=== PATIENT | female | born 1935 | race Caucasian/White ===

== ENCOUNTER 2018-01-07 12:35 | Inpatient (IN) | payer OTHER ==
[~2018-01-07] VITALS: Ht 162.6 cm; Wt 68.9 kg
[2018-01-07] MEDS ORDERED: COZAAR50 MG (13:00)
[2018-01-07] MEDS ORDERED: SINGULAIR10 MG (13:00)
[2018-01-07] MEDS ORDERED: LIPITOR20 MG (13:00)
[2018-01-07] MEDS ORDERED: COREG CR20 MG (13:00)
[2018-01-07] MEDS ORDERED: DILANTIN100 MG (13:01)
[2018-01-10] MEDS ORDERED: LORATADINE10 MG PO (14:24)
[2018-01-10] MEDS ORDERED: OSEL75CA PO (14:25)
[2018-01-10] MEDS ORDERED: LOSARTAN POTASS50 MG PO (14:25)
[2018-01-10] MEDS ORDERED: BENZONATATE200 M1 PO (14:25)
== END 2018-01-10 15:24 | disposition home or self-care (01) | DRG 202 ==
LOC: ER 12:35 → SEC-K 20:40 → SURH 20:40 → SEC-K 22:17 → SURH 22:53
PROC: 3E0F7GC Introduction of Other Therapeutic Substance into Respiratory Tract, Via Natural or Artificial Opening (ICD-10-PCS; principal; 2018-01-07)
PROC: 8E0ZXY6 Isolation (ICD-10-PCS; 2018-01-07)
PROC: BB24ZZZ Computerized Tomography (CT Scan) of Bilateral Lungs (ICD-10-PCS; 2018-01-08)
PROC: 4A00X4Z Measurement of Central Nervous Electrical Activity, External Approach (ICD-10-PCS; 2018-01-09)
DX: J45.41 Moderate persistent asthma with (acute) exacerbation (principal); G40.89 Other seizures; B37.0 Candidal stomatitis; I10 Essential (primary) hypertension; D69.59 Other secondary thrombocytopenia; J11.1 Influenza due to unidentified influenza virus with other respiratory manifestations

== ENCOUNTER 2018-03-04 11:58 | Outpatient (CLI) | payer OTHER ==
[~2018-03-04 11:58] MED LIST: BENZONATATE200 M1 PO; COREG CR20 MG; COZAAR50 MG; DILANTIN100 MG; LIPITOR20 MG; LORATADINE10 MG PO; LOSARTAN POTASS50 MG PO; OSEL75CA PO; SINGULAIR10 MG
== END 2018-03-04 12:07 | disposition home or self-care (01) ==
LOC: RAD 501 11:58
DX: Z01.810 Encounter for preprocedural cardiovascular examination (principal)

== ENCOUNTER 2018-03-04 13:26 | Outpatient (CLI) | payer OTHER | END 2018-03-04 13:35 | disposition home or self-care (01) | LOC: SONOGRAMA 13:26 | DX: E07.89 Other specified disorders of thyroid (principal); E03.8 Other specified hypothyroidism ==

== ENCOUNTER → 2018-03-17 10:51 | Outpatient (CLI) | payer OTHER | END | disposition home or self-care (01) | LOC: EKG 10:51 | DX: Z01.810 Encounter for preprocedural cardiovascular examination (principal) ==

== ENCOUNTER 2018-07-07 13:51 | Outpatient (CLI) | payer OTHER | END 2018-07-07 14:50 | disposition home or self-care (01) | LOC: RAD 501 13:51 | DX: J45.901 Unspecified asthma with (acute) exacerbation (principal); H40.9 Unspecified glaucoma; I10 Essential (primary) hypertension ==

== ENCOUNTER 2019-03-16 13:16 | Emergency (ER) | payer OTHER ==
[~2019-03-16] VITALS: Ht 162.6 cm; Wt 72.6 kg
[2019-03-16] MEDS ORDERED: VERAPAMIL HCL80 MG (13:22)
[2019-03-16] MEDS ORDERED: LIPITOR20 MG (13:22)
[2019-03-16] MEDS ORDERED: AMBIEN5 MG (13:23)
[2019-03-16] MEDS ORDERED: KEPPRA750 MG (13:23)
== END 2019-03-16 16:19 | disposition home or self-care (01) ==
LOC: ER 13:16
DX: R55 Syncope and collapse (principal)

== ENCOUNTER 2019-07-13 11:21 | Outpatient (CLI) | payer OTHER ==
[~2019-07-13 11:21] MED LIST changes: +AMBIEN5 MG; +KEPPRA750 MG; +VERAPAMIL HCL80 MG
== END 2019-07-13 11:32 | disposition home or self-care (01) ==
LOC: NUCLEAR 11:21
DX: I87.2 Venous insufficiency (chronic) (peripheral) (principal); I73.9 Peripheral vascular disease, unspecified

== ENCOUNTER 2019-07-14 11:58 | Outpatient (CLI) | payer OTHER | END 2019-07-14 12:00 | disposition home or self-care (01) | LOC: RAD 11:58 | DX: Z01.811 Encounter for preprocedural respiratory examination (principal) ==

== ENCOUNTER 2019-07-14 14:54 | Outpatient (CLI) | payer OTHER | END 2019-07-14 15:05 | disposition home or self-care (01) | LOC: NUCLEAR 14:54 | DX: I87.2 Venous insufficiency (chronic) (peripheral) (principal); I73.9 Peripheral vascular disease, unspecified ==

== ENCOUNTER 2021-01-05 12:55 | Emergency (ER) | payer OTHER ==
[~2021-01-05] VITALS: Ht 162.6 cm; Wt 67.1 kg
== END 2021-01-05 16:16 | disposition home or self-care (01) ==
LOC: ER 12:55
DX: S60.212A Contusion of left wrist, initial encounter (principal); S00.83XA Contusion of other part of head, initial encounter; S50.12XA Contusion of left forearm, initial encounter; W18.39XA Other fall on same level, initial encounter; Y93.89 Activity, other specified; Y92.098 Other place in other non-institutional residence as the place of occurrence of the external cause; Y99.8 Other external cause status; R55 Syncope and collapse; G40.89 Other seizures; Z03.818 Encounter for observation for suspected exposure to other biological agents ruled out

== ENCOUNTER 2021-10-11 13:45 | Emergency (ER) | payer OTHER ==
[~2021-10-11] VITALS: Ht 162.6 cm; Wt 68.9 kg
[2021-10-11] MEDS ORDERED: ORPHENADRINE C100 MG PO (14:57)
[2021-10-11] MEDS ORDERED: DICLOFENAC POTA50 MG PO (14:57)
== END 2021-10-11 15:01 | disposition home or self-care (01) ==
LOC: ER 13:45
DX: S23.3XXA Sprain of ligaments of thoracic spine, initial encounter (principal); S20.211A Contusion of right front wall of thorax, initial encounter; W18.39XA Other fall on same level, initial encounter; Y93.89 Activity, other specified; Y92.018 Other place in single-family (private) house as the place of occurrence of the external cause; Y99.8 Other external cause status

== ENCOUNTER 2022-02-11 11:20 | Outpatient (CLI) | payer OTHER ==
[~2022-02-11 11:20] MED LIST changes: +DICLOFENAC POTA50 MG PO; +ORPHENADRINE C100 MG PO
== END 2022-02-11 11:24 | disposition home or self-care (01) ==
LOC: RAD 11:20
PROVIDERS: ATTEND Podiatrist
DX: Z01.818 Encounter for other preprocedural examination (principal)

== ENCOUNTER 2023-11-28 13:17 | Inpatient (IN) | payer OTHER ==
[~2023-11-28] VITALS: Ht 152.4 cm; Wt 68.9 kg
[2023-11-28 14:20] LABS: ABG PH 7.417 (7.35-7.45); ABG PO2 53.4 mmHg (80-100); ABG pCO2 37.9 mmHg (35-45); BASE EXCESS -0.3 mmol/l; BICARBONATE 23.9 mmol/l (23-25); SaO2 87.9 %; Tco2 25.1 mmol/l
[2023-11-28 14:21] LABS: o2 21 %
[2023-11-28 14:22] LABS: HEMATOCRIT 37.7 % (36.0-45.00); HEMOGLOBIN 12.3 g/dL (12.0-15.00); MEAN CELL VOLUME 89.7 fL (80.00-100.00); MEAN CORPUSCULAR HEMOGLOBIN 29.4 pg (27.00-32.0); MEAN CORPUSCULAR HGB CONC 32.8 g/dl (32.0-36.0); PLATELET COUNT 153 K/uL (150-450); RED CELL DISTRIBUTION WIDTH 13.4 % (11.5-14.5)
[2023-11-28 14:22] LABS: allen test SATISFACTORY; puncture site RADIAL RIGHT
[2023-11-28 14:43] LABS: CALCIUM 10.2 mg/dL (8.5-10.1); CREATININE SERUM 1.02 mg/dL (0.55-1.02); GFR 51.26; POTASSIUM 4.96 mEq/L (3.5-5.1)
[2023-11-28 15:13] LABS: URINE APPEARANCE Clear; URINE BILIRRUBIN Negative (NEGATIVE); URINE BLOOD Moderate; URINE COLOR Yellow; URINE GLUCOSE Negative (NEGATIVE); URINE LEUKOCYTE Negative; URINE NITRATE Negative; URINE PROTEIN Negative (NEGATIVE); URINE UROBILINOGEN 0.2 E.U./dl
[2023-11-28 15:16] LABS: URINE BACTERIA 331.3 uL (0.0-1933); URINE EPITHELIAL CELLS 1.5 uL (0.0-38.8); URINE RBC 92.9 uL (0.0-20.8); URINE WBC 2.4 uL (0.0-23.2)
[2023-11-28 22:20] LABS: ABG PH 7.429 (7.35-7.45); ABG PO2 85.5 mmHg (80-100); ABG pCO2 38.2 mmHg (35-45); SaO2 96.8 %
[2023-11-28 22:21] LABS: BASE EXCESS 0.7 mmol/l; BICARBONATE 24.8 mmol/l (23-25); Tco2 25.9 mmol/l; allen test SATISFACTORY; o2 32 %; puncture site RADIAL RIGHT
[2023-12-01 12:08] LABS: HEMATOCRIT 35.6 % (36.0-45.00); HEMOGLOBIN 11.7 g/dL (12.0-15.00); MEAN CELL VOLUME 88.7 fL (80.00-100.00); MEAN CORPUSCULAR HEMOGLOBIN 29.2 pg (27.00-32.0); MEAN CORPUSCULAR HGB CONC 32.9 g/dl (32.0-36.0); PLATELET COUNT 132 K/uL (150-450); RED BLOOD COUNT 4.01 M/uL (4.00-6.00)
[2023-12-01 12:36] LABS: CALCIUM 8.9 mg/dL (8.5-10.1); CREATININE SERUM 1.07 mg/dL (0.55-1.02); GFR 48.51; POTASSIUM 4.49 mEq/L (3.5-5.1)
[2023-12-04 07:04] LABS: HEMATOCRIT 34.3 % (36.0-45.00); HEMOGLOBIN 11.6 g/dL (12.0-15.00); MEAN CELL VOLUME 88.1 fL (80.00-100.00); MEAN CORPUSCULAR HEMOGLOBIN 29.7 pg (27.00-32.0); MEAN CORPUSCULAR HGB CONC 33.7 g/dl (32.0-36.0); PLATELET COUNT 127 K/uL (150-450); RED BLOOD COUNT 3.89 M/uL (4.00-6.00); RED CELL DISTRIBUTION WIDTH 13.5 % (11.5-14.5)
[2023-12-04 07:24] LABS: ALBUMIN 3.2 gm/dL (3.4-5.0); BILIRUBIN TOTAL 0.39 mg/dL (0.3-1.2); CALCIUM 9.1 mg/dL (8.5-10.1); CREATININE SERUM 0.99 mg/dL (0.55-1.02); GFR 53.06; GLOBULINA 2.6 G/DL (2.4-3.5); MAGNESIUM 2.6 mg/dL (1.8-2.4); PHOSPHOROUS 2.8 mg/dL (2.5-4.9); POTASSIUM 4.44 mEq/L (3.5-5.1); TOTAL PROTEIN 5.8 gm/dL (6.4-8.2)
[2023-12-04 07:25] LABS: C-REACTIVE PROTEIN 4.68 MG/DL (0.00-0.29)
[2023-12-04 08:38] LABS: MYCOPLASMA PNEUMONIAE IGM NON REACTIVE (NO REACTIVE)
[2023-12-05 06:11] LABS: HEMATOCRIT 33.3 % (36.0-45.00); HEMOGLOBIN 11.2 g/dL (12.0-15.00); MEAN CELL VOLUME 89.1 fL (80.00-100.00); MEAN CORPUSCULAR HEMOGLOBIN 29.9 pg (27.00-32.0); MEAN CORPUSCULAR HGB CONC 33.5 g/dl (32.0-36.0); RED BLOOD COUNT 3.73 M/uL (4.00-6.00)
[2023-12-05 06:24] LABS: PLATELET COUNT 123 K/uL (150-450)
[2023-12-05] MEDS ORDERED: REFRESH OPTIVE1 EAC2 (09:05)
[2023-12-05] MEDS ORDERED: CARBIDOPA-LEVO1 EA10 (09:05)
[2023-12-05] MEDS ORDERED: METOPROLOL SUCC50 MG (09:05)
[2023-12-05] MEDS ORDERED: OLMESARTAN MEDO20 MG (09:05)
[2023-12-06 08:17] LABS: HEMATOCRIT 34.8 % (36.0-45.00); HEMOGLOBIN 11.5 g/dL (12.0-15.00); MEAN CELL VOLUME 88.8 fL (80.00-100.00); MEAN CORPUSCULAR HEMOGLOBIN 29.3 pg (27.00-32.0); PLATELET COUNT 136 K/uL (150-450); RED BLOOD COUNT 3.92 M/uL (4.00-6.00)
[2023-12-08 06:41] LABS: HEMATOCRIT 35.6 % (36.0-45.00); HEMOGLOBIN 11.7 g/dL (12.0-15.00); MEAN CELL VOLUME 88.9 fL (80.00-100.00); MEAN CORPUSCULAR HEMOGLOBIN 29.4 pg (27.00-32.0)
[2023-12-08 06:52] LABS: PLATELET COUNT 129 K/uL (150-450)
[2023-12-08 07:14] LABS: C-REACTIVE PROTEIN 1.01 MG/DL (0.00-0.29); CALCIUM 9.3 mg/dL (8.5-10.1); CREATININE SERUM 0.86 mg/dL (0.55-1.02); GFR 62.42; MAGNESIUM 2.2 mg/dL (1.8-2.4); PHOSPHOROUS 3.6 mg/dL (2.5-4.9); POTASSIUM 4.27 mEq/L (3.5-5.1)
[2023-12-08 08:30] LABS: MANUAL PLATELET COUNT 272
[2023-12-09 07:23] LABS: T4 TOTAL 7.69 UG/DL (4.8-13.9); TSH 3.38 uIU/mL (0.358-3.74)
[2023-12-10 07:10] LABS: HEMATOCRIT 34.5 % (36.0-45.00); HEMOGLOBIN 11.4 g/dL (12.0-15.00); MEAN CELL VOLUME 88.3 fL (80.00-100.00); MEAN CORPUSCULAR HEMOGLOBIN 29.2 pg (27.00-32.0); MEAN CORPUSCULAR HGB CONC 33.1 g/dl (32.0-36.0); PLATELET COUNT 131 K/uL (150-450); RED BLOOD COUNT 3.91 M/uL (4.00-6.00); RED CELL DISTRIBUTION WIDTH 13.1 % (11.5-14.5)
[2023-12-10 09:00] LABS: ABG PH 7.425 (7.35-7.45); ABG PO2 85.8 mmHg (80-100); ABG pCO2 43.5 mmHg (35-45); BASE EXCESS 3.1 mmol/l; BICARBONATE 27.9 mmol/l (23-25); SaO2 96.8 %; Tco2 29.3 mmol/l
[2023-12-10 09:01] LABS: allen test SATISFACTORY; o2 21 %; puncture site RADIAL RIGHT
== END 2023-12-10 17:50 | disposition home or self-care (01) | DRG 202 ==
LOC: ER 13:17 → MEDJ 21:38 → SEC-K 21:38 → MEDJ 22:02
PROVIDERS: Emergency Medicine; General Practice; Internal Medicine Geriatric Medicine; Internal Medicine Infectious Disease; ADMIT Specialist; ATTEND Specialist
PROC: B246ZZZ Ultrasonography of Right and Left Heart (ICD-10-PCS; principal; 2023-11-28)
PROC: 3E0F7GC Introduction of Other Therapeutic Substance into Respiratory Tract, Via Natural or Artificial Opening (ICD-10-PCS; 2023-11-29)
PROC: 4A12X4Z Monitoring of Cardiac Electrical Activity, External Approach (ICD-10-PCS; 2023-11-29)
PROC: BB24ZZZ Computerized Tomography (CT Scan) of Bilateral Lungs (ICD-10-PCS; 2023-11-30)
PROC: B54DZZZ Ultrasonography of Bilateral Lower Extremity Veins (ICD-10-PCS; 2023-12-02)
PROC: 02HV33Z Insertion of Infusion Device into Superior Vena Cava, Percutaneous Approach (ICD-10-PCS; 2023-12-02)
PROC: [UNRECOGNIZED PROCEDURE] (2023-12-06)
DX: J45.901 Unspecified asthma with (acute) exacerbation (principal); J18.9 Pneumonia, unspecified organism; J21.9 Acute bronchiolitis, unspecified; J90 Pleural effusion, not elsewhere classified; I11.0 Hypertensive heart disease with heart failure; I48.91 Unspecified atrial fibrillation; I87.2 Venous insufficiency (chronic) (peripheral); E78.5 Hyperlipidemia, unspecified

== ENCOUNTER 2024-09-20 15:53 | Outpatient (CLI) | payer OTHER ==
[~2024-09-20 15:53] MED LIST changes: +AMIODARONE HCL200 MG; +CARBIDOPA-LEVO1 EA10; +METOPROLOL SUCC50 MG; +OLMESARTAN MEDO20 MG; +REFRESH OPTIVE1 EAC2
== END 2024-09-20 16:00 | disposition home or self-care (01) ==
LOC: SONOGRAMA 15:53
PROVIDERS: ATTEND Specialist
DX: R22.1 Localized swelling, mass and lump, neck (principal)

== ENCOUNTER 2024-12-02 22:24 | Inpatient (IN) | payer OTHER ==
[~2024-12-02] VITALS: Ht 157.5 cm; Wt 68.0 kg
[2024-12-03] MEDS ORDERED: IPRATROPIUM/ALBUTEROL SULFATE 3 ML AMPUL.NEB IH SCH (01:55)
[2024-12-03] MEDS ORDERED: IPRATROPIUM/ALBUTEROL SULFATE 3 ML AMPUL.NEB IH ONE ×4 (02:12→14:34)
[2024-12-03 03:00] LABS: HEMOGLOBIN 12.6 g/dL (12.0-15.00); MEAN CELL VOLUME 88.4 fL (80.00-100.00); MEAN CORPUSCULAR HEMOGLOBIN 29.3 pg (27.00-32.0); MEAN CORPUSCULAR HGB CONC 33.2 g/dl (32.0-36.0); RED BLOOD COUNT 4.29 M/uL (4.00-6.00); RED CELL DISTRIBUTION WIDTH 14.9 % (11.5-14.5)
[2024-12-03 03:02] LABS: PLATELET COUNT 122 K/uL (150-450)
[2024-12-03 03:20] LABS: CALCIUM 9.3 mg/dL (8.5-10.1); CREATININE SERUM 1.55 mg/dL (0.55-1.02); GFR 31.55; POTASSIUM 4.01 mEq/L (3.5-5.1)
[2024-12-03 05:03] LABS: ABG PH 7.392 (7.35-7.45); ABG PO2 60.2 mmHg (80-100); ABG pCO2 43.6 mmHg (35-45); BASE EXCESS 0.7 mmol/l; BICARBONATE 25.9 mmol/l (23-25); SaO2 90.5 %; Tco2 27.3 mmol/l
[2024-12-03 05:04] LABS: allen test SATISFACTORY; o2 21 %; puncture site RADIAL RIGHT
[2024-12-03] MEDS ORDERED: CEFTRIAXONE SODIUM 1,000 MG VIAL IV ONE (08:45)
[2024-12-03] MEDS ORDERED: CEFTRIAXONE SODIUM 1,000 MG VIAL ONE (08:53)
[2024-12-03] MEDS ORDERED: LEVALBUTEROL HCL 1.25 MG/3 ML SOLUTION IH SCH (09:00)
[2024-12-03] MEDS ORDERED: FUROsemide 20 MG/2 ML VIAL IV ONE (10:15)
[2024-12-03] MEDS ORDERED: 0.9 % SODIUM CHLORIDE 1,000 ML IV SCH (10:15)
[2024-12-03] MEDS ORDERED: SODIUM CHLORIDE 0.45 % 1,000 ML IV SCH (12:45)
[2024-12-03] MEDS ORDERED: LEVALBUTEROL HCL 0.63 MG/3 ML SOLUTION IH SCH (13:00)
[2024-12-03] MEDS ORDERED: CEFTRIAXONE SODIUM 2,000 MG VIAL IV SCH (13:03)
[2024-12-03] MEDS ORDERED: CEFTRIAXONE SODIUM 2,000 MG VIAL IV STA (13:03)
[2024-12-03] MEDS ORDERED: LevETIRAcetam 500 MG TAB. PO SCH (13:04)
[2024-12-03] MEDS ORDERED: APIXABAN 2.5 MG TABLET PO SCH (13:05)
[2024-12-03] MEDS ORDERED: METOPROLOL SUCCINATE 25 MG TAB.SR.24H PO SCH (13:06)
[2024-12-03] MEDS ORDERED: AZITHROMYCIN 500 MG VIAL IV SCH (13:15)
[2024-12-03] MEDS ORDERED: PIPERACILLIN/TAZOBACTAM SODIUM 2.25 GM VIAL IV SCH ×2 (13:15→17:00)
[2024-12-03] MEDS ORDERED: AMIODARONE HCL 200 MG TABLET PO SCH (13:15)
[2024-12-03 14:42] VITALS: BP 130/80
[2024-12-03 15:45] VITALS: BP 90/60; O2SAT 95
[2024-12-03 19:12] VITALS: BP 134/55
[2024-12-03] MEDS ORDERED: ZOLPIDEM TARTRATE 5 MG TABLET PO SCH (21:00)
[2024-12-03 21:23] VITALS: O2SAT 96
[2024-12-04] VITALS (8 sets, daily range): BP systolic 96–139; BP diastolic 53–66; O2SAT 90–99
[2024-12-04 07:30] LABS: URINE APPEARANCE Cloudy; URINE BILIRRUBIN Negative (NEGATIVE); URINE BLOOD Large; URINE COLOR Orange; URINE GLUCOSE Negative (NEGATIVE); URINE KETONE Negative (NEGATIVE); URINE LEUKOCYTE Moderate; URINE NITRATE Negative; URINE UROBILINOGEN 0.2 E.U./dl
[2024-12-04 07:33] LABS: URINE BACTERIA 118.7 uL (0.0-1933); URINE EPITHELIAL CELLS 8.2 uL (0.0-38.8); URINE RBC 8172.4 uL (0.0-20.8); URINE WBC 163.3 uL (0.0-23.2)
[2024-12-04 08:18] LABS: HEMATOCRIT 37.5 % (36.0-45.00); HEMOGLOBIN 12.4 g/dL (12.0-15.00); MEAN CELL VOLUME 89.7 fL (80.00-100.00); MEAN CORPUSCULAR HEMOGLOBIN 29.6 pg (27.00-32.0); PLATELET COUNT 96 K/uL (150-450); RED BLOOD COUNT 4.18 M/uL (4.00-6.00); RED CELL DISTRIBUTION WIDTH 14.8 % (11.5-14.5)
[2024-12-04 08:19] LABS: ERYTHROCYTE SEDIMENTATION RATE 12 mm/hr
[2024-12-04 08:21] LABS: URINE CAST 0.44 uL (0.0-1.40); URINE PROTEIN 100 (NEGATIVE)
[2024-12-04] MEDS ORDERED: ATORVASTATIN CALCIUM 20 MG TABLET PO SCH (09:00)
[2024-12-04] MEDS ORDERED: AMIODARONE HCL 200 MG TABLET PO SCH (09:00)
[2024-12-04] MEDS ORDERED: FUROsemide 20 MG TABLET PO SCH (09:00)
[2024-12-04] MEDS ORDERED: MONTELUKAST SODIUM 10 MG TABLET PO SCH (09:00)
[2024-12-04 09:05] LABS: ALBUMIN 3.4 gm/dL (3.4-5.0); BILIRUBIN TOTAL 0.58 mg/dL (0.3-1.2); C-REACTIVE PROTEIN 1.44 MG/DL (0.00-0.29); CALCIUM 9.3 mg/dL (8.5-10.1); CHOL HDL RATIO 2.4 (0-5.0); CREATININE SERUM 1.15 mg/dL (0.55-1.02); GFR 44.53; GLOBULINA 2.8 G/DL (2.4-3.5); MAGNESIUM 1.9 mg/dL (1.8-2.4); POTASSIUM 4.32 mEq/L (3.5-5.1); TOTAL PROTEIN 6.2 gm/dL (6.4-8.2); TSH 3.79 uIU/mL (0.358-3.74)
[2024-12-04 12:16] LABS: MYCOPLASMA PNEUMONIAE IGM NON REACTIVE (NO REACTIVE)
[2024-12-04] MEDS ORDERED: CEFTRIAXONE SODIUM 2,000 MG VIAL IV SCH (22:04)
[2024-12-04] MEDS ORDERED: AZITHROMYCIN 500 MG VIAL IV ONE (22:15)
[2024-12-05] VITALS (9 sets, daily range): BP systolic 118–135; BP diastolic 62–72; O2SAT 90–98
[2024-12-05] MEDS ORDERED: LACTOBACILLUS ACIDOPHILUS 1 CAP CAP PO SCH (09:00)
[2024-12-05] MEDS ORDERED: PANTOPRAZOLE SODIUM 40 MG TABLET.DR PO SCH (09:24)
[2024-12-05] MEDS ORDERED: FUROsemide 20 MG/2 ML VIAL IV STA (10:22)
[2024-12-05] MEDS ORDERED: POLYETHYLENE GLYCOL 3350 17 GM BLIST.PACK PO STA (12:57)
[2024-12-05] MEDS ORDERED: GUAIFENESIN/DEXTROMETHORPHAN 5ML BLIST.PACK PO SCH (13:00)
[2024-12-05] MEDS ORDERED: AZITHROMYCIN 2 MG/ML REDILUIDO IV SCH (21:00)
[2024-12-06] VITALS (9 sets, daily range): BP systolic 131–160; BP diastolic 62–79; O2SAT 90–100
[2024-12-06] MEDS ORDERED: POLYETHYLENE GLYCOL 3350 17 GM BLIST.PACK PO SCH (09:00)
[2024-12-06 09:29] LABS: HEMATOCRIT 37.6 % (36.0-45.00); HEMOGLOBIN 12.2 g/dL (12.0-15.00); MEAN CORPUSCULAR HEMOGLOBIN 28.9 pg (27.00-32.0); MEAN CORPUSCULAR HGB CONC 32.5 g/dl (32.0-36.0); RED BLOOD COUNT 4.23 M/uL (4.00-6.00); RED CELL DISTRIBUTION WIDTH 14.7 % (11.5-14.5)
[2024-12-06 09:30] LABS: PLATELET COUNT 113 K/uL (150-450)
[2024-12-06 10:21] LABS: ALBUMIN 3.2 gm/dL (3.4-5.0); BILIRUBIN TOTAL 0.52 mg/dL (0.3-1.2); CALCIUM 9.1 mg/dL (8.5-10.1); CREATININE SERUM 1.1 mg/dL (0.55-1.02); GFR 46.87; GLOBULINA 3.1 G/DL (2.4-3.5); MAGNESIUM 2.1 mg/dL (1.8-2.4); PHOSPHOROUS 3.6 mg/dL (2.5-4.9); POTASSIUM 4.54 mEq/L (3.5-5.1); TOTAL PROTEIN 6.3 gm/dL (6.4-8.2)
[2024-12-06 10:30] LABS: MANUAL PLATELET COUNT 234
[2024-12-06] MEDS ORDERED: BENZONATATE 100 MG CAPSULE PO SCH (17:00)
[2024-12-07] VITALS (9 sets, daily range): BP systolic 109–149; BP diastolic 63–79; O2SAT 90–100
[2024-12-08] VITALS (8 sets, daily range): BP systolic 130–148; BP diastolic 62–67; O2SAT 90–100
[2024-12-08] MEDS ORDERED: BENZONATATE 200 MG CAPSULE PO SCH (09:00)
[2024-12-09] VITALS (9 sets, daily range): BP systolic 124–144; BP diastolic 58–62; O2SAT 90–99
[2024-12-09 12:00] LABS: ABG pCO2 47.3 mmHg (35-45)
[2024-12-09 12:01] LABS: BASE EXCESS 3.8 mmol/l; BICARBONATE 29.3 mmol/l (23-25); SaO2 77.5 %; Tco2 30.7 mmol/l; allen test SATISFACTORY; o2 21 %; puncture site RADIAL RIGHT
[2024-12-10] VITALS (7 sets, daily range): BP systolic 103–147; BP diastolic 60–70; O2SAT 90–100
[2024-12-10 09:07] LABS: ABG PH 7.444 (7.35-7.45); ABG pCO2 43.5 mmHg (35-45); BASE EXCESS 4.4 mmol/l; BICARBONATE 29.1 mmol/l (23-25); Tco2 30.5 mmol/l
[2024-12-10 11:05] LABS: allen test SATISFACTORY; o2 21 %; puncture site FEMORAL
== END 2024-12-10 19:14 | disposition home or self-care (01) | DRG 194 ==
LOC: ER 22:24 → SEC-K 12-03 13:50 → MEDJ 12-03 13:50
PROVIDERS: Internal Medicine Geriatric Medicine; Internal Medicine Infectious Disease; ADMIT Specialist; ATTEND Specialist
PROC: 4A12X4Z Monitoring of Cardiac Electrical Activity, External Approach (ICD-10-PCS; principal; 2024-12-03)
PROC: BW24ZZZ Computerized Tomography (CT Scan) of Chest and Abdomen (ICD-10-PCS; 2024-12-04)
DX: J18.9 Pneumonia, unspecified organism (principal); I50.30 Unspecified diastolic (congestive) heart failure; J98.11 Atelectasis; N39.0 Urinary tract infection, site not specified; N17.9 Acute kidney failure, unspecified; I50.9 Heart failure, unspecified; J45.909 Unspecified asthma, uncomplicated; E11.8 Type 2 diabetes mellitus with unspecified complications; I34.0 Nonrheumatic mitral (valve) insufficiency; D69.6 Thrombocytopenia, unspecified; E03.9 Hypothyroidism, unspecified; I48.0 Paroxysmal atrial fibrillation; I11.0 Hypertensive heart disease with heart failure; R09.02 Hypoxemia